=== PATIENT | male | born 1960 ===

== ENCOUNTER → 2018-10-30 | Outpatient (CLI) | payer SELFPAY ==
[~2018-10-30] MED LIST: CLIN300 PO; HYDACE5 PO; KETO10 PO; Multiple Vitam1 EAC1 PO; RXOXYACE PO; TAMS.4ER PO
== END ==
LOC: LAB 17:26 → LAB SHORT 17:26
PROVIDERS: Nurse Practitioner
DX: Z41.8 Encounter for other procedures for purposes other than remedying health state (principal)
CPT/HCPCS: 86317; 86708; 86735; 86757; 86762; 86765